=== PATIENT | female | born 1940 | race Hispanic/Latino ===

== ENCOUNTER → 2017-09-03 | Outpatient (CLI) | payer MEDICARE ==
[~2017-09-03] MED LIST: IOPAMIDOL 370 MG/ML 200 ML INFUS..BTL INJ ONE; SODIUM CHLORIDE 0.9% 250ML 500 ML ONE
[2017-09-03 12:03] LABS: CREATININE, SERUM 1.28 mg/dL (0.57-1.11)
--- NOTE | 2017-09-03 13:36 | Diagnostic Imaging Report ---
PROCEDURE:CT CHEST WITH CONTRAST COMPARISON:[facility], DX, CHEST 2 VIEWS, 11/05/2013, 8:55. INDICATIONS:Chronic cough; chest x-ray. TECHNIQUE: Routine protocol Volumetric CT chest after administration of 70 mL Isovue 370 intravenous contrast. Multiplanar reformatted images. FINDINGS: Lungs: Chronic subsegmental atelectasis in the right middle lobe and lingular segmental atelectasis. Djkdy-awvi-zh bud airspace opacity within the right middle lobe. Pleura: Mild fibronodular apical pleural-parenchymal scar. No pleural effusions. Airways: Mild cylindrical bronchiectasis in the lingula. Mild bilateral bronchial wall thickening. Trace foci of distal bronchial filling (for example, right lower lobe image 66, series 4). Lymph nodes: Normal Pulmonary arteries: Main pulmonary artery diameter normal at 2 cm; right 2.3 cm; left 2.5 cm. Intraparenchymal pulmonary arteries are normal. Thoracic aorta and great vessels: Normal caliber. Trace atherosclerosis. Heart and pericardium: Normal Subdiaphragmatic organs: Cholelithiasis. Skeleton: Intact. Mild multilevel degenerative disc disease. Soft tissues: Normal CONCLUSION: 1. Lingular and right middle lobe volume loss with associated cylindrical bronchiectasis and trace tree-in-bud airspace opacity. Findings are in keeping with sequela of chronic infection (such as SEVERINO). 2. Prominent pulmonary arteries suggest developing pulmonary hypertension. Dictated by: Boston Torres M.D. on 09/03/2017 at 13:37 Electronically approved by: Boston Torres M.D. on 09/03/2017 at 13:37
== END ==
LOC: CT 11:23
PROVIDERS: ATTEND Family Medicine
DX: R91.8 Other nonspecific abnormal finding of lung field (principal); R05 Cough
CPT/HCPCS: 36415; 71260; 82565; 84520; J7050; Q9967

== ENCOUNTER → 2018-10-01 | Outpatient (CLI) | payer MEDICARE ==
--- NOTE | 2018-10-01 15:44 | Diagnostic Imaging Report ---
EXAM: CT Chest without contrast INDICATION: Pleuritic chest pain. COMPARISON: None TECHNIQUE: Chest was scanned utilizing a multidetector helical scanner from the lung apex through the level of the adrenal glands without administration of IV contrast. Coronal and sagittal reformations were obtained. Routine protocol was performed. RADIATION DOSE: Total DLP: 404.2 mGy*cm Dose modulation, iterative reconstruction, and/or weight based adjustment of the mA/kV was utilized to reduce the radiation dose to as low as reasonably achievable. COMPLICATIONS: None FINDINGS: LINES/ TUBES: None. LUNGS AND AIRWAYS: The central airways are patent. There is biapical pleural-parenchymal opacity, suggestive of prior granulomatous disease. There are bilateral solid pulmonary nodules, the largest nodules in the right upper lobe measure 4 mm on series 3, images 49 and 59. The largest nodule in the left upper lobe measures 5 mm on image 48. There are bilateral tree-in-bud nodules in all lobes. There is patchy consolidation with focal bronchiectasis within the lingula on image 74. PLEURA: The pleural spaces are clear. HEART AND MEDIASTINUM: The thyroid gland is normal. No mediastinal, hilar or axillary lymphadenopathy. No cardiomegaly or pericardial effusion. Scattered atherosclerotic calcifications of the thoracic aorta and branch vessels. Left-sided fat-containing Bochdalek hernia. UPPER ABDOMEN: Limited non-contrast views of the upper abdomen. Cholelithiasis without CT evidence of cholecystitis. Atrophic left kidney with wedge-shaped defects, which may represent renal infarcts. Partially seen left upper pole renal stones, measuring up to 3 mm. BONES/SOFT TISSUES: No acute osseous amount he. No suspicious lytic or blastic lesions. Diffuse osteopenia. IMPRESSION: Multifocal tree-in-bud nodules and focal bronchiectasis with consolidation in the lingula and bilateral solid nodules measuring up to 5 mm. Findings may represent atypical mycobacterial infection. Follow-up chest CT is suggested in 3 months. Atrophic left kidney with wedge-shaped defects, which may represent renal infarcts. Left upper pole renal stones, measuring up to 3 mm. Renal ultrasound may be considered for further evaluation. Signed by: Dr. Herman Jo MD on 10/01/2018 3:41 PM
== END ==
LOC: CT 11:51
PROVIDERS: ATTEND Internal Medicine Critical Care Medicine
DX: J47.9 Bronchiectasis, uncomplicated (principal); R91.8 Other nonspecific abnormal finding of lung field; N20.0 Calculus of kidney
CPT/HCPCS: 71250